=== PATIENT | male | born 1960 | race Caucasian/White ===

== ENCOUNTER 2017-02-08 19:19 | Inpatient (IN) | payer OTHER ==
--- NOTE | 2017-02-08 21:45 | Emergency Department Report ---
ED Lower Extremity HPI - General Chief Complaint: Extremity Injury, Lower Stated Complaint: RT KNEE PAIN/SWELLING Time Seen by Provider: 02/08/17 21:26 Source: patient Mode of arrival: Ambulatory Limitations: No Limitations - History of Present Illness Initial Comments: 56-year-old male past medical history none presents with complaint of right lower extremity pain and redness and swelling from the knee down to the ankle for the last 4 days. Patient states that he had a trip and fall 5 days ago small abrasion on skin subsequently developed redness which spread down his anterior right lower merrill. Patient states he has been on antibiotics for 2 days as per his PMD and has not experienced any relief of pain and redness has gotten progressively worse. Patient speaks Ukrainian is present with the rest of his family including presenting me with a bottle of Keflex. MD Complaint: knee injury Onset/Timin -: days(s) Injury: Leg: Right (erythema and cellulitis pending from right knee down to the right ankle circumferential), Knee: Right Place: home Severity: moderate Severity scale (0 -10): 6 Improves With: nothing Worsens With: weight bearing, movement Associated Symptoms: swelling, able to partially bear weight - Related Data Allergies Allergy/AdvReac Type Severity Reaction Status Date / Time No Known Allergies Allergy Verified 02/08/17 21:55 ED Review of Systems ROS: Stated complaint: RT KNEE PAIN/SWELLING Other details as noted in HPI Constitutional: denies: chills, fever Eyes: denies: eye pain, eye discharge, vision change ENT: denies: ear pain, throat pain Respiratory: denies: cough, shortness of breath, wheezing Cardiovascular: denies: chest pain, palpitations Endocrine: no symptoms reported Gastrointestinal: denies: abdominal pain, nausea, diarrhea Genitourinary: denies: urgency, dysuria Musculoskeletal: as per HPI. denies: back pain, joint swelling, arthralgia Skin: as per HPI, change in color. denies: rash, lesions Neurological: denies: headache, weakness, paresthesias Psychiatric: denies: anxiety, depression Hematological/Lymphatic: denies: easy bleeding, easy bruising ED Past Medical Hx - Past Medical History Previous Medical History?: No - Surgical History Past Surgical History?: No - Social History Smoking Status: Never Smoker Substance Use Type: None ED Physical Exam - General Limitations: No Limitations General appearance: alert, in no apparent distress - Head Head exam: Present: atraumatic, normocephalic - Eye Eye exam: Present: normal appearance, PERRL, EOMI - ENT ENT exam: Present: mucous membranes moist - Neck Neck exam: Present: normal inspection - Respiratory Respiratory exam: Present: normal lung sounds bilaterally. Absent: respiratory distress - Cardiovascular Cardiovascular Exam: Present: regular rate, normal rhythm. Absent: systolic murmur, diastolic murmur, rubs, gallop - GI/Abdominal GI/Abdominal exam: Present: soft, normal bowel sounds - Rectal Rectal exam: Present: deferred - Extremities Exam Extremities exam: Present: normal inspection - Expanded Lower Extremity Exam Right Hip exam: Present: normal inspection, full ROM Upper Leg exam: Present: normal inspection, full ROM Knee exam: Present: normal inspection, full ROM Lower Leg exam: Present: tenderness (right lower extremity appears cellulitic from right knee down to her right ankle circumferential.), erythema Ankle exam: Present: normal inspection, full ROM Foot/Toe exam: Present: normal inspection, full ROM Gait: Positive: antalgic 1 - Erythema and cellulitis circumferential right lower extremity - Back Exam Back exam: Present: normal inspection - Neurological Exam Neurological exam: Present: alert, oriented X3 - Psychiatric Psychiatric exam: Present: normal affect, normal mood - Skin Skin exam: Present: warm, dry, intact, normal color. Absent: rash ED Course Vital Signs 02/08/17 02/08/17 02/08/17 19:45 22:53 23:00 Temperature 99 F 98 F Pulse Rate 64 71 Respiratory 18 18 18 Rate Blood Pressure 154/73 Blood Pressure 137/75 [Left] O2 Sat by Pulse 100 99 98 Oximetry ED Lower Extremity MDM - Lab Data Result diagrams: 02/09/17 05:17 02/09/17 05:17 - Medical Decision Making A/P: Extensive right lower extremity cellulitis 1-3 g Unasyn 2-lab work and blood cultures sent 3-case discussed with hospitalist Dr. Johnson for admission for extensive cellulitis failing outpatient antibiotics 4-patient does not appear toxic Critical care attestation.: If time is entered above; I have spent that time in minutes in the direct care of this critically ill patient, excluding procedure time. ED Disposition Clinical Impression: Cellulitis of right leg Disposition: OP ADMITTED IP TO THIS HOSP Is pt being admited?: Yes Does the pt Need Aspirin: No Condition: Stable
--- NOTE | 2017-02-08 21:48 | XRay Report ---
FINAL REPORT EXAM: XR KNEE 3V RT HISTORY: injury with pain/swelling COMPARISON: None available. FINDINGS: Three views the right knee obtained. Mild soft tissue swelling along the infrapatellar region. Bony structures are intact. Joint spaces are preserved. No acute fracture dislocation. IMPRESSION: No acute bony abnormality. Mild soft tissue swelling.
[2017-02-08] MEDS ORDERED: NACL 0.9% 1000 ML 1,000 ML IV ONE (21:53)
[2017-02-08] MEDS ORDERED: VANCOMYCIN VIAL IV ONE (21:54)
[2017-02-08] MEDS ORDERED: VANCOMYCIN 1,750 MG in NACL 0.9% 500 ML 500 ML IV ONE (22:00)
[2017-02-08] MEDS ORDERED: VANCOMYCIN PHARMACY TO DOSE IV SCH (22:00)
[2017-02-08] MEDS ORDERED: UNASYN/NS 3 GM/100 ML 3 GM/100 ML BAG IV ONE (22:01)
[2017-02-08] MEDS ORDERED: ZOFRAN IV PRN (22:26)
[2017-02-08] MEDS ORDERED: TYLENOL PO PRN (22:26)
[2017-02-08] MEDS ORDERED: MILK OF MAGNESIA PO PRN (22:26)
[2017-02-08] MEDS ORDERED: DULCOLAX PR PRN (22:26)
[2017-02-08 22:31] LABS: Basophils % (Auto) 0.9 % (0.0-1.8); Eosinophils % (Auto) 2.1 % (0.0-4.3); Hematocrit 38.7 % (35.5-45.6); Hemoglobin 12.7 gm/dl (11.8-15.2); Mean Corpuscular HGB Conc 33 % (32-34); Mean Corpuscular Hemoglobin 28 pg (28-32); Mean Corpuscular Volume 86 fl (84-94); Platelet Count 228 K/mm3 (140-440); Red Blood Count 4.49 M/mm3 (3.65-5.03); Red Cell Distribution Width 14.1 % (13.2-15.2)
--- NOTE | 2017-02-08 22:33 | History and Physical Report ---
History of Present Illness Date of examination: 02/08/17 History of present illness: This is a 56-year-old man with no medical problems comes emergency room with complaints of right leg swelling and redness. The patient sustained a fall and bruised the right knee. He went to his primary care physician who gave him Keflex, he took this for 5 days, despite being on antibiotics he has worsening of his symptoms. Admits to fever, chills Patient denies chest pain, palpitation, shortness of breath, cough, abdominal pain, hematochezia, dysuria, frequency, focal weakness, dysarthria, polydipsia polyuria, hot or cold intolerance, easy bruisability, or rash or bleeding from mucosal membrane, rhinorrhea, epistaxis, earache, tinnitus, blurry vision, eye discharge, anxiety, depression. Other review of systems negative PAST SURGICAL HISTORY: None SOCIAL HISTORY: Social alcohol use, no tobacco or drugs FAMILY HISTORY: Hypertension Medications and Allergies Allergies Allergy/AdvReac Type Severity Reaction Status Date / Time No Known Allergies Allergy Verified 02/08/17 21:55 Active Meds: Active Medications Acetaminophen (Tylenol) 650 mg PO Q4H PRN PRN Reason: Pain MILD(1-3)/Fever >100.5/WAGONER Bisacodyl (Dulcolax) 10 mg AL QDAY PRN PRN Reason: Constipation unrelieved by MOM Enoxaparin Sodium (Lovenox) 40 mg SUB-Q QDAY LEANNA Sodium Chloride (Nacl 0.9% 1000 Ml) 1,000 mls @ 999 mls/hr IV BOLUS ONE Stop: 02/08/17 22:53 Last Admin: 02/08/17 22:10 Dose: 999 mls/hr Magnesium Hydroxide (Milk Of Magnesia) 30 ml PO Q4H PRN PRN Reason: Constipation Ondansetron HCl (Zofran) 4 mg IV Q8H PRN PRN Reason: N/V unrelieved by Reglan Oxycodone/Acetaminophen (Percocet 5/325) 1 tab PO Q4H PRN PRN Reason: Pain, Moderate (4-6) Exam - Physical Exam Narrative exam: Gen. appearance: Patient lying in bed, no apparent distress HEENT: Normocephalic, atraumatic, pupils equally round and reactive to light, extraocular movement intact, and no sclericterus,. No JVD or thyromegaly or nodule,neck supple, no carotid bruit ,mucous membranes moist, no exudate or erythema Heart: S1, S2, regular rate and rhythm Lungs: Clear to auscultation bilaterally, breathing comfortable Abdomen: Positive bowel sounds, nontender, nondistended, no organomegaly Extremity: Right leg swelling, erythematous, tender No , cyanosis, clubbing Skin: No rash, nodules, warm, dry Neuro: Oriented 3, cranial nerves II-12 intact, speech is fluent, motor and sensory intact - Constitutional Vitals: Temp Pulse Resp BP Pulse Ox 99 F 64 18 154/73 100 02/08/17 19:45 02/08/17 19:45 02/08/17 19:45 02/08/17 19:45 02/08/17 19:45 Results - Labs CBC & Chem 7: 02/09/17 05:17 02/09/17 05:17 Labs: Abnormal lab results 02/08/17 Range/Units 22:05 [place] % (Auto) 7.7 H (0.0-7.3) % Assessment and Plan Extensive right leg cellulitis Admit to medicine Start IV Vanco, DVT prophylaxis, Percocet
[2017-02-08 22:39] LABS: Anion Gap 19 mmol/L; Blood Urea Nitrogen 15 mg/dL (9-20); Calcium 9.2 mg/dL (8.4-10.2); Carbon Dioxide 27 mmol/L (22-30); Chloride 96.9 mmol/L (98-107); Glucose 109 mg/dL (75-100); Potassium 4.1 mmol/L (3.6-5.0); Sodium 139 mmol/L (137-145)
[2017-02-09] MEDS: PERCOCET 5/325 PO PRN ×3 (00:05→20:07)
[2017-02-09 05:45] LABS: Basophils % (Auto) 0.9 % (0.0-1.8); Eosinophils % (Auto) 2.4 % (0.0-4.3); Hematocrit 34.9 % (35.5-45.6); Hemoglobin 11.6 gm/dl (11.8-15.2); Mean Corpuscular HGB Conc 33 % (32-34); Mean Corpuscular Hemoglobin 28 pg (28-32); Mean Corpuscular Volume 85 fl (84-94); Platelet Count 218 K/mm3 (140-440); Red Blood Count 4.11 M/mm3 (3.65-5.03); Red Cell Distribution Width 14.2 % (13.2-15.2); White Blood Count 7.6 K/mm3 (4.5-11.0)
[2017-02-09 06:05] LABS: Anion Gap 18 mmol/L; Blood Urea Nitrogen 12 mg/dL (9-20); Calcium 8.5 mg/dL (8.4-10.2); Carbon Dioxide 25 mmol/L (22-30); Chloride 102.2 mmol/L (98-107); Glucose 102 mg/dL (75-100); Potassium 3.9 mmol/L (3.6-5.0); Sodium 141 mmol/L (137-145)
[2017-02-09] MEDS ORDERED: VANCOMYCIN/NS 1 GM/250 ML 1 GM/250 ML BAG IV SCH (08:00)
[2017-02-09] MEDS: LOVENOX SUB-Q SCH (09:05)
--- NOTE | 2017-02-09 09:17 | Progress Note ---
Assessment and Plan Assessment and plan: This is a 56-year-old man with no medical problems comes emergency room with complaints of right leg swelling and redness. The patient sustained a fall and bruised the right knee. He went to his primary care physician who gave him Keflex, he took this for 5 days, despite being on antibiotics he has worsening of his symptoms. Admits to fever, chills Patient denies chest pain, palpitation, shortness of breath, cough, abdominal pain, hematochezia, dysuria, frequency, focal weakness, dysarthria, polydipsia polyuria, hot or cold intolerance, easy bruisability, or rash or bleeding from mucosal membrane, rhinorrhea, epistaxis, earache, tinnitus, blurry vision, eye discharge, anxiety, depression. Other review of systems negative * Extensive right leg cellulitis * failed outpatient therapy * continue vancomycin- pharmacy to dose, and de-escalate in the a.m. if no evidence of MRSA. * pain control. * eval for DVT of right lower ext-negative on ultrasound * DVT/GI prophy History Interval history: Patient seen and examined this morning in no acute distress still with pain in the right lower extremity. No other adverse event reported to me Hospitalist Physical - Physical exam Narrative exam: VITAL SIGNS: Reviewed. GENERAL: The patient appeared well nourished and normally developed. Vital signs as documented. HEAD: No signs of head trauma. EYES: Pupils are equal. Extraocular motions intact. EARS: Hearing grossly intact. MOUTH: Oropharynx is normal. NECK: No adenopathy, no JVD. CHEST: Chest with clear breath sounds bilaterally. No wheezes, rales, or rhonchi. CARDIAC: Regular rate and rhythm. S1 and S2, without murmurs, gallops, or rubs. VASCULAR: Right lower extremity Edema. Peripheral pulses normal and equal in all extremities. ABDOMEN: Soft, without detectable tenderness. No sign of distention. No rebound or guarding, and no masses palpated. Bowel Sounds normal. MUSCULOSKELETAL: Good range of motion of all major joints. Extremities without clubbing, cyanosis . Right lower extremity edema. NEUROLOGIC EXAM: Alert and oriented x 3. No focal sensory or strength deficits. Speech normal. Follows commands. PSYCHIATRIC: Mood normal. SKIN: Erythema in the right lower extremity from the knee all the way to the ankle, circumferential - Constitutional Vitals: Temp Pulse Resp BP Pulse Ox 99.5 F 60 19 121/69 94 02/09/17 07:00 02/09/17 07:00 02/09/17 07:00 02/09/17 07:00 02/09/17 08:57 Results - Labs CBC & Chem 7: 02/09/17 05:17 02/09/17 05:17 Labs: Laboratory Last Values WBC 7.6 K/mm3 (4.5-11.0) 02/09/17 05:17 RBC 4.11 M/mm3 (3.65-5.03) 02/09/17 05:17 Hgb 11.6 gm/dl (11.8-15.2) L 02/09/17 05:17 Hct 34.9 % (35.5-45.6) L 02/09/17 05:17 MCV 85 fl (84-94) 02/09/17 05:17 MCH 28 pg (28-32) 02/09/17 05:17 MCHC 33 % (32-34) 02/09/17 05:17 RDW 14.2 % (13.2-15.2) 02/09/17 05:17 Plt Count 218 K/mm3 (140-440) 02/09/17 05:17 Lymph % (Auto) 27.1 % (13.4-35.0) 02/09/17 05:17 [place] % (Auto) 8.5 % (0.0-7.3) H 02/09/17 05:17 Eos % (Auto) 2.4 % (0.0-4.3) 02/09/17 05:17 Baso % (Auto) 0.9 % (0.0-1.8) 02/09/17 05:17 Lymph # 2.0 K/mm3 (1.2-5.4) 02/09/17 05:17 [place] # 0.6 K/mm3 (0.0-0.8) 02/09/17 05:17 Eos # 0.2 K/mm3 (0.0-0.4) 02/09/17 05:17 Baso # 0.1 K/mm3 (0.0-0.1) 02/09/17 05:17 Seg Neutrophils % 61.1 % (40.0-70.0) 02/09/17 05:17 Seg Neutrophils # 4.6 K/mm3 (1.8-7.7) 02/09/17 05:17 Sodium 141 mmol/L (137-145) 02/09/17 05:17 Potassium 3.9 mmol/L (3.6-5.0) 02/09/17 05:17 Chloride 102.2 mmol/L (98-107) 02/09/17 05:17 Carbon Dioxide 25 mmol/L (22-30) 02/09/17 05:17 Anion Gap 18 mmol/L 02/09/17 05:17 BUN 12 mg/dL (9-20) 02/09/17 05:17 Creatinine 0.6 mg/dL (0.8-1.5) L 02/09/17 05:17 Estimated GFR > 60 ml/min 02/09/17 05:17 BUN/Creatinine Ratio 20.00 % 02/09/17 05:17 Glucose 102 mg/dL (75-100) H 02/09/17 05:17 Lactic Acid 1.20 mmol/L (0.7-2.0) 02/08/17 22:05 Calcium 8.5 mg/dL (8.4-10.2) 02/09/17 05:17 Total Creatine Kinase 40 units/L (55-170) L 02/08/17 22:05
[2017-02-09] MEDS ORDERED: VANCOMYCIN PHARMACY TO DOSE IV SCH (10:00)
[2017-02-09] MEDS ORDERED: VANCOMYCIN/NS 1 GM/250 ML 1 GM/250 ML BAG IV ONE (13:00)
--- NOTE | 2017-02-09 13:58 | Admit Criteria Form ---
Admission Criteria Documentation: CELLULITIS Clinical Indications for Admission to Inpatient Care (Place 'X' for any and all applicable criteria): Admission is indicated for ANY ONE of the following(1)(2)(3)(4)(5): [ ]I. Limb-threatening infection [ ]II. High-risk comorbid condition as indicated by ANY ONE of the following: [ ]a) Uncontrolled diabetes (eg, HbA1c greater than 10% (0.1)) [ ]b) Cirrhosis [ ]c) Neutropenia [ ]d) Asplenia [ ]e) Immunosuppression [ ]f) Symptomatic heart failure [ ]III. Failure of outpatient therapy as indicated by ALL of the following: [ ]a) Progression or no improvement after adequate trial (minimum of 48 hours, with longer period for stable lower extremity infection) [ ]b) Adequate antibiotic regimen as indicated by use of ANY ONE of the following: [ ]i) First-generation cephalosporin (e.g., cephalexin) [ ]ii) Antistaphylococcal penicillin (e.g., dicloxacillin) [ ]iii) Penicillin-allergic patient regimen (clindamycin, extended-spectrum fluoroquinolone, or doxycycline) [ ]iv) Resistant organism (eg, methicillin-resistant Staphylococcus aureus) regimen (6) [ ]c) Outpatient intravenous therapy regimen is not appropriate due to ANY ONE of the following. (7)(8)(9)(10): [ ]i) It was tried and was not successful (eg, progression of infection). [ ]ii) It is not available or cannot be arranged in a clinically appropriate time frame (e.g., the next day). [ ]iii) Clinical presentation (eg, acuity of infection, rapidity of progression, confirmed or suspected bacteremia) is judged to require ALL of the following: [ ]1) Immediate initiation of intravenous therapy ( eg, cannot wait for next day) [ ]2) Intensity of patient monitoring and observation (eg, vital sign measurement, checks for infection progression) that cannot be provided at other than inpatient level of care [ ]IV. Mental status changes [ ]V. Bacteremia [ ]. Hemodynamic instability [ ]VII. Suspected necrotizing soft tissue infection (e.g., gas in tissue)(11)( 12) [ ]VIII. Orbital infection (13)(14) [ ]IX. Associated surgical procedure (e.g., abscess drainage, debridement) not amenable to outpatient, emergency department, or observation care [ ]X. Cutaneous gangrene [ ]XI. High fever (temperature greater than 39.5 degrees C (103.1 degrees F) (oral)) not responsive to outpatient, emergency department, or observation care therapy [ X]XIII. Inpatient admission required rather than observation care (Also use Cellulitis: Observation Care as appropriate) because of ANY ONE of the following : [ ]a) Periorbital or perineal infection that is severe or worsening [ ]b) Severe pain requiring acute inpatient management [ ]c) IV fluid to replace significant ongoing (e.g., for over 24 hours) losses (greater than 3L/m2 per day) [ ]d) Compartment syndrome monitoring (17) [ ]e) Strict or protective (eg, laminar flow) isolation [ ]f) Urgent debridement or skin grafting [ ]g) Bone or joint debridement [ ]h) Immediate inpatient surgery [ X]i) Other condition, treatment or monitoring requiring inpatient admission Extended stay beyond goal length of stay may be needed for (1)(18): [ ]a) Necrotizing soft tissue infection or fasciitis [ ]b) Gram-negative infection [ ]c) Methicillin-resistant Staphylococcal aureus (MRSA) infection [ ]d) Peripheral venous insufficiency with cellulitis [ ]e) Extensive edema [ ]f) Sepsis or continued Hemodynamic instability [ ]g) Continued high fever or mental status change [ ]h) Bacteremia [ ]i) Active serious comorbid conditions ( eg, heart failure, renal insufficiency) The original [employer] content created by [employer] has been revised. The portions of the content which have been revised are identified through the use of italic text or in bold, and [facility] has neither reviewed nor approved the modified material. All other unmodified content is copyright [facility] [employer] Please see references footnoted in the original [facility] [employer] edition 2016 Admission Criteria Met: Yes
[2017-02-10] MEDS: VANCOMYCIN 1,500 MG in NACL 0.9% 500 ML 500 ML IV SCH ×2 (00:57→13:01)
[2017-02-10 08:21] VITALS: BP 129/68
[2017-02-10] MEDS: LOVENOX SUB-Q SCH (09:37)
--- NOTE | 2017-02-10 10:13 | Discharge Summary ---
Providers - Providers Date of Admission: 02/08/17 22:26 Attending physician: JAYA SAPP MD Primary care physician: SULEMA FAITH MD Hospitalization Condition: Stable Hospital course: 56M with no significant pmh who presented with R leg swelling. He had seen his PCP about it, who had put him on oral abx, Keflex for 5 days, despite receiving abx, the leg continued to swell, was red and painful and he was having fevers and chills. Patient was admitted to the hospital for extensive right lower extremity cellulitis, he had already failed outpatient therapy. He was admitted and received IV antibiotics, he had interval improvement in his symptoms. He was sent home with 2 drug oral antibiotics, and he was advised to follow up with his PCP within 1 week to monitor recovery from the infection. Patient stated that he did not have insurance therefore he was given coupons to help with filling his prescriptions X Discharge diagnoses Extensive right leg cellulitis, did not meet sepsis criteria Disposition: DISCHARGED TO HOME OR SELFCARE Time spent for discharge: 35 minutes Core Measure Documentation - Palliative Care Palliative Care/ Comfort Measures: Not Applicable - Core Measures Any of the following diagnoses?: none Exam - Constitutional Vitals: Temp Pulse Resp BP Pulse Ox 99 F 72 18 129/68 96 02/10/17 08:00 02/10/17 08:56 02/10/17 08:00 02/10/17 08:00 02/10/17 08:56 General appearance: Present: no acute distress, well-nourished - EENT Eyes: Present: PERRL ENT: hearing intact, clear oral mucosa - Neck Neck: Present: supple, normal ROM - Respiratory Respiratory effort: normal Respiratory: bilateral: CTA - Cardiovascular Heart Sounds: Present: S1 & S2. Absent: rub, click - Extremities Extremities: pulses symmetrical, abnormal (right leg erythema, swelling and tenderness) Peripheral Pulses: within normal limits - Abdominal General gastrointestinal: Present: soft, non-tender, non-distended, normal bowel sounds Male genitourinary: Present: normal - Integumentary Integumentary: Present: clear, warm, dry - Musculoskeletal Musculoskeletal: gait normal, strength equal bilaterally - Psychiatric Psychiatric: appropriate mood/affect, intact judgment & insight - Neurologic Neurologic: CNII-XII intact, moves all extremities Plan Follow up with: PRIMARY CARE, [Primary Care Provider] - 3-5 Days Prescriptions: Amoxicillin/K Clav Tab [Augmentin 500 MG TAB] 1 each PO Q12HR #14 tablet Clindamycin [Clindamycin CAP] 300 mg PO Q8H #20 cap oxyCODONE /ACETAMINOPHEN [Percocet 5/325 mg] 1 tab PO Q4H PRN #20 tablet PRN Reason: Pain, Moderate (4-6)
[2017-02-10] MEDS: PERCOCET 5/325 PO PRN (14:45)
--- NOTE | 2017-02-12 15:06 | Vascular Lab Report ---
Right Lower Extremity Venous Duplex Study: Reason for Exam: Deep venous thrombus. Comments on the Right: All veins visualized are freely compressible without evidence of internal echogenicity. Flow is spontaneous and phasic throughout. No evidence of acute or chronic thrombus is seen in any of the vessels visualized. Comments on the Left: A limited duplex study was done of the proximal veins of the left lower extremity. All veins visualized are freely compressible without evidence of internal echogenicity. Flow is spontaneous and phasic throughout. No evidence of acute or chronic thrombus is seen in any of the vessels visualized. Impression: No evidence of acute or chronic deep venous thrombosis in the right lower extremity.
== END 2017-02-10 15:25 | disposition home or self-care (01) | DRG 603 ==
LOC: ED 19:19 → 3A 22:26
PROVIDERS: ADMIT Internal Medicine; ATTEND Internal Medicine
DX: L03.115 Cellulitis of right lower limb (principal); I10 Essential (primary) hypertension; Z72.89 Other problems related to lifestyle; Z82.49 Family history of ischemic heart disease and other diseases of the circulatory system
CPT/HCPCS: 36415; 80048; 82140; 82550; 85025; 87040; 96365; J0295; J1650; J3370; J7030; J7040

== ENCOUNTER 2017-02-14 17:41 | Inpatient (IN) | payer OTHER ==
[2017-02-14 18:20] LABS: Hematocrit 40.3 % (35.5-45.6); Hemoglobin 13.1 gm/dl (11.8-15.2); Mean Corpuscular HGB Conc 33 % (32-34); Mean Corpuscular Hemoglobin 28 pg (28-32); Mean Corpuscular Volume 86 fl (84-94); Platelet Count 435 K/mm3 (140-440); Red Blood Count 4.69 M/mm3 (3.65-5.03); White Blood Count 10.4 K/mm3 (4.5-11.0)
[2017-02-14] MEDS ORDERED: ZOFRAN IV ONE (18:25)
[2017-02-14] MEDS ORDERED: NACL 0.9% 500 ML 500 ML IV ONE (18:25)
[2017-02-14] MEDS ORDERED: MORPHINE IV ONE (18:25)
[2017-02-14 18:37] LABS: Anion Gap 19 mmol/L; BUN/Creatinine Ratio 17.14; Blood Urea Nitrogen 12 mg/dL (9-20); Calcium 9.4 mg/dL (8.4-10.2); Carbon Dioxide 26 mmol/L (22-30); Chloride 97.2 mmol/L (98-107); Glucose 107 mg/dL (75-100); Potassium 3.9 mmol/L (3.6-5.0); Sodium 138 mmol/L (137-145)
--- NOTE | 2017-02-14 18:53 | Admit Criteria Form ---
Admission Criteria Documentation: CELLULITIS Clinical Indications for Admission to Inpatient Care (Place 'X' for any and all applicable criteria): Admission is indicated for ANY ONE of the following(1)(2)(3)(4)(5): [X ]I. Limb-threatening infection [ ]II. High-risk comorbid condition as indicated by ANY ONE of the following: [ ]a) Uncontrolled diabetes (eg, HbA1c greater than 10% (0.1)) [ ]b) Cirrhosis [ ]c) Neutropenia [ ]d) Asplenia [ ]e) Immunosuppression [ ]f) Symptomatic heart failure [ ]III. Failure of outpatient therapy as indicated by ALL of the following: [ ]a) Progression or no improvement after adequate trial (minimum of 48 hours, with longer period for stable lower extremity infection) [ ]b) Adequate antibiotic regimen as indicated by use of ANY ONE of the following: [ ]i) First-generation cephalosporin (e.g., cephalexin) [ ]ii) Antistaphylococcal penicillin (e.g., dicloxacillin) [ ]iii) Penicillin-allergic patient regimen (clindamycin, extended-spectrum fluoroquinolone, or doxycycline) [ ]iv) Resistant organism (eg, methicillin-resistant Staphylococcus aureus) regimen (6) [ ]c) Outpatient intravenous therapy regimen is not appropriate due to ANY ONE of the following. (7)(8)(9)(10): [ ]i) It was tried and was not successful (eg, progression of infection). [ ]ii) It is not available or cannot be arranged in a clinically appropriate time frame (e.g., the next day). [ ]iii) Clinical presentation (eg, acuity of infection, rapidity of progression, confirmed or suspected bacteremia) is judged to require ALL of the following: [ ]1) Immediate initiation of intravenous therapy ( eg, cannot wait for next day) [ ]2) Intensity of patient monitoring and observation (eg, vital sign measurement, checks for infection progression) that cannot be provided at other than inpatient level of care [ ]IV. Mental status changes [ ]V. Bacteremia [ ]. Hemodynamic instability [ ]VII. Suspected necrotizing soft tissue infection (e.g., gas in tissue)(11)( 12) [ ]VIII. Orbital infection (13)(14) [ ]IX. Associated surgical procedure (e.g., abscess drainage, debridement) not amenable to outpatient, emergency department, or observation care [ ]X. Cutaneous gangrene [ ]XI. High fever (temperature greater than 39.5 degrees C (103.1 degrees F) (oral)) not responsive to outpatient, emergency department, or observation care therapy [ ]XIII. Inpatient admission required rather than observation care (Also use Cellulitis: Observation Care as appropriate) because of ANY ONE of the following : [ ]a) Periorbital or perineal infection that is severe or worsening [ ]b) Severe pain requiring acute inpatient management [ ]c) IV fluid to replace significant ongoing (e.g., for over 24 hours) losses (greater than 3L/m2 per day) [ ]d) Compartment syndrome monitoring (17) [ ]e) Strict or protective (eg, laminar flow) isolation [ ]f) Urgent debridement or skin grafting [ ]g) Bone or joint debridement [ ]h) Immediate inpatient surgery [ ]i) Other condition, treatment or monitoring requiring inpatient admission Extended stay beyond goal length of stay may be needed for (1)(18): [ ]a) Necrotizing soft tissue infection or fasciitis [ ]b) Gram-negative infection [ ]c) Methicillin-resistant Staphylococcal aureus (MRSA) infection [ ]d) Peripheral venous insufficiency with cellulitis [ ]e) Extensive edema [ ]f) Sepsis or continued Hemodynamic instability [ ]g) Continued high fever or mental status change [ ]h) Bacteremia [ ]i) Active serious comorbid conditions ( eg, heart failure, renal insufficiency) The original [employer] content created by [employer] has been revised. The portions of the content which have been revised are identified through the use of italic text or in bold, and [facility] has neither reviewed nor approved the modified material. All other unmodified content is copyright [facility] Please see references footnoted in the original [email or web address] edition 2016 Admission Criteria Met: Yes
[2017-02-14] MEDS ORDERED: ZOFRAN IV PRN (20:33)
[2017-02-14] MEDS ORDERED: MILK OF MAGNESIA PO PRN (20:33)
[2017-02-14] MEDS ORDERED: TYLENOL PO PRN (20:33)
[2017-02-14] MEDS ORDERED: DULCOLAX PR PRN (20:33)
[2017-02-14] MEDS ORDERED: DILAUDID IV PRN (20:34)
--- NOTE | 2017-02-14 20:39 | Event Note ---
Date: 02/14/17 See H/p in reports
[2017-02-14] MEDS ORDERED: VANCOMYCIN PHARMACY TO DOSE IV SCH (21:00)
[2017-02-14] MEDS ORDERED: VANCOMYCIN 1,750 MG in NACL 0.9% 500 ML 500 ML IV ONE (22:00)
[2017-02-14] MEDS: NACL 0.9% 1000 ML 1,000 ML IV SCH (22:59)
[2017-02-14] MEDS: ZOSYN/NS 3.375GM/50ML 3.375 GM/50 ML BAG IV SCH (23:04)
[2017-02-15] MEDS: ZOSYN/NS 3.375GM/50ML 3.375 GM/50 ML BAG IV SCH ×4 (02:26→21:26)
--- NOTE | 2017-02-15 03:05 | Emergency Department Report ---
HPI - General Chief Complaint: Wound/Laceration Time Seen by Provider: 02/14/17 18:07 - HPI HPI: The patient is a 56-year-old male who presents for pain and infection to the leg. The patient reports progressive pain to the right leg for the past 2 weeks , currently severe, 10/10 in severity, throbbing in quality, exacerbated with weightbearing ambulation, constant since onset. He also reports associated redness and swelling of the lower leg. He shares that he has been outpatient trial of treatment. He denies fever, plantar penetrating trauma to the leg, paresthesias, motor deficit. ED Past Medical Hx - Past Medical History Hx Congestive Heart Failure: No Hx Diabetes: No Hx Asthma: No Hx COPD: No Additional medical history: cellulitis right lower leg - Social History Smoking Status: Never Smoker - Medications Home Medications: Home Medications Medication Instructions Recorded Confirmed Last Taken Type Amoxicillin/K Clav Tab [Augmentin 1 each PO Q12HR #14 tablet 02/10/17 02/14/17 Unknown Rx 500 MG TAB] Clindamycin [Clindamycin CAP] 300 mg PO Q8H #20 cap 02/10/17 02/14/17 Unknown Rx oxyCODONE /ACETAMINOPHEN [Percocet 1 tab PO Q4H PRN #20 tablet 02/10/17 Unknown Rx 5/325 mg] ED Review of Systems ROS: Stated complaint: SWOLLEN RIGHT LEG/DR REFERRED Other details as noted in HPI Constitutional: denies: fever ENT: denies: throat or neck pain Respiratory: denies: cough, shortness of breath Cardiovascular: denies: chest pain Endocrine: denies unexplained weight loss or gain Gastrointestinal: denies: abdominal pain, nausea Genitourinary: denies: dysuria Musculoskeletal: Reports leg pain and swelling Skin: denies: rash Neurological: denies: headache Hematological/Lymphatic: denies: easy bleeding or easy bruising Psych: denies sadness or hopelessness Physical Exam - Physical Exam Vital Signs: Vital Signs 02/14/17 02/14/17 02/14/17 17:58 18:56 19:23 Temperature 98.8 F 99 F Pulse Rate 65 63 Respiratory 18 18 16 Rate Blood Pressure 150/80 Blood Pressure 139/69 [Right] O2 Sat by Pulse 97 97 Oximetry 02/14/17 19:26 Temperature Pulse Rate 60 Respiratory 10 L Rate Blood Pressure 144/68 Blood Pressure [Right] O2 Sat by Pulse 95 Oximetry Physical Exam: General: well-nourished, well-developed, no acute distress Head: Normocephalic, atraumatic Eyes: normal sclera ENT: Mucous membranes are pink and moist Neck: trachea midline, neck supple, No neck stiffness, no cervical adenopathy Respiratory: Breath sounds equal bilaterally, no wheezing, rales, or rhonchi Cardio: S1 and S2 present, no murmurs, rubs, gallops, capillary refill is brisk Abdomen: Normoactive bowel sounds, soft abdomen, no rigidity, no guarding or rebound tenderness Musc: 1+ pitting edema and erythema present to the distal right lower extremity , tender to palpation, leg compartments are soft and pliable, no signs of compartment syndrome at this time. Skin: No rash Neuro: no facial drooping, normal speech Psych: Normal affect ED Course Vital Signs 02/14/17 02/14/17 02/14/17 17:58 18:56 19:23 Temperature 98.8 F 99 F Pulse Rate 65 63 Respiratory 18 18 16 Rate Blood Pressure 150/80 Blood Pressure 139/69 [Right] O2 Sat by Pulse 97 97 Oximetry 02/14/17 19:26 Temperature Pulse Rate 60 Respiratory 10 L Rate Blood Pressure 144/68 Blood Pressure [Right] O2 Sat by Pulse 95 Oximetry ED Medical Decision Making - Lab Data Result diagrams: 02/14/17 18:07 02/14/17 18:07 - Medical Decision Making The patient was seen and examined by myself. The patient is placed on a panel monitor and continuous pulse ox. On initial evaluation, the patient was found to be in no distress. Evaluation orders were placed. The patient is given IV morphine for his pain and IV Zosyn for treatment of cellulitis. Lab results revealed elevated CRP of 3.9. As patient has failed outpatient trial of treatment, the patient will be admitted for continued IV antibiotic and close monitoring. Dr. Galvez of the physician on-call for the hospitalist service was contacted. He agreed to admit the patient for further treatment and close monitoring. The ED admit order was placed. The patient was admitted in guarded condition. Critical care attestation.: If time is entered above; I have spent that time in minutes in the direct care of this critically ill patient, excluding procedure time. ED Disposition Clinical Impression: Cellulitis of right leg Disposition: OP ADMITTED IP TO THIS HOSP Is pt being admited?: Yes Does the pt Need Aspirin: Yes Condition: Stable Time of Disposition: 03:01
[2017-02-15] MEDS ORDERED: BABY ASPIRIN PO ONE (03:06)
[2017-02-15 06:50] LABS: Basophils % (Auto) 0.7 % (0.0-1.8); Eosinophils % (Auto) 1.5 % (0.0-4.3); Hematocrit 34.5 % (35.5-45.6); Hemoglobin 11.4 gm/dl (11.8-15.2); Mean Corpuscular HGB Conc 33 % (32-34); Mean Corpuscular Hemoglobin 28 pg (28-32); Mean Corpuscular Volume 85 fl (84-94); Platelet Count 370 K/mm3 (140-440); Red Blood Count 4.06 M/mm3 (3.65-5.03); Red Cell Distribution Width 13.8 % (13.2-15.2); White Blood Count 7.2 K/mm3 (4.5-11.0)
[2017-02-15 07:11] LABS: Alanine Aminotransferase 19 units/L (7-56); Albumin 3.2 g/dL (3.9-5); Albumin/Globulin Ratio 0.9 %; Alkaline Phosphatase 100 units/L (35-129); Anion Gap 17 mmol/L; BUN/Creatinine Ratio 17.14; Blood Urea Nitrogen 12 mg/dL (9-20); Calcium 8.8 mg/dL (8.4-10.2); Carbon Dioxide 26 mmol/L (22-30); Chloride 101.6 mmol/L (98-107); Glucose 96 mg/dL (75-100); Potassium 3.8 mmol/L (3.6-5.0); Sodium 141 mmol/L (137-145); Total Protein 6.8 g/dL (6.3-8.2)
--- NOTE | 2017-02-15 08:37 | History and Physical Report ---
CHIEF COMPLAINT: Redness of the right leg for the past 2 weeks. HISTORY OF PRESENT ILLNESS: This is a 56-year-old male with no significant past medical history, who presents with redness of the leg from knee to ankle region. Also, a small abscess just below the knee. The patient apparently had a fall and sustained injury, which got infectious secondarily with infections spreading from the below knee to where the injury was all the way down to the right ankle. Low-grade fever present. PAST MEDICAL HISTORY: As mentioned, no significant past medical history. SOCIAL HISTORY: None. PAST SURGICAL HISTORY: None. FAMILY HISTORY: Noncontributory. REVIEW OF SYSTEMS: Significant for right lower extremity swelling and pain and redness from knee below to the ankle. Also, a small abscess at the top of the redness. Otherwise review of systems is essentially negative. PHYSICAL EXAMINATION: GENERAL: Middle-aged obese male, cooperative. VITAL SIGNS: Temperature 98.8, pulse 65, respirations 18, blood pressure 150/80. HEENT: Unremarkable. Pupils equal and reactive. NECK: Supple. No lymphadenopathy. No thyromegaly. LUNGS: Clear to auscultation and percussion. Good air entry. CARDIOVASCULAR: S1, S2 heard. No gallop, no murmur, no rub. Apical impulse in left fifth intercostal space and midclavicular line. ABDOMEN: Soft and benign. No hepatosplenomegaly. No guarding. No rigidity. EXTREMITIES: Right lower extremity is swollen from just below the knee to the ankle. Also, 3 x 3 cm abscess present just below the ankle. CENTRAL NERVOUS SYSTEM: Alert and oriented x4. SKIN: ____. LABORATORY DATA: White count is 10,400, ____ is 13.1, platelet count is 435,000. Electrolytes are normal. C-reactive protein is high at 3.90. Sodium is 139, potassium is 3.9, glucose is normal. A1c is 5.7. Glucose level is 107. ____. ASSESSMENT AND PLAN: 1. Right lower extremity cellulitis. The patient was started on IV vancomycin and IV Zosyn. Wound care consult requested. 2. Deep venous thrombosis prophylaxis, Lovenox 40 mg subcutaneous daily. JOB# [id number] VSM/NTS
[2017-02-15] MEDS: VANCOMYCIN 1,500 MG in NACL 0.9% 500 ML 500 ML IV SCH ×2 (10:34→22:31)
--- NOTE | 2017-02-15 10:49 | Progress Note ---
Assessment and Plan Assessment and plan: --Cellulitis right lower extremities Elevated the limb, IV antibiotics, vancomycin associated blood cultures, surgery evaluation noted Follow CT leg to rule out any fluid collection or abscess Lower extremity venous Doppler to rule out any DV --Obesity Counseling done patient advised diet modification and exercise as tolerated and weight reduction --History of of hypertension Monitor blood pressures, when necessary hydralazine --DVT prophylaxis with Lovenox Closely monitor the patient and adjust management as needed History Interval history: Patient seen and evaluated medical records reviewed Admitted with right lower extremity swelling and cellulitis, on IV antibiotics Surgical evaluation and recommendations noted and appreciated Patient complains of slight pain in the lower extremity Denies any fever, alert awake oriented 3 not in acute distress vital signs are stable Hospitalist Physical - Constitutional Vitals: Temp Pulse Resp BP Pulse Ox 98.7 F 51 L 19 127/75 98 02/15/17 07:00 02/15/17 07:00 02/15/17 07:00 02/15/17 07:00 02/15/17 07:00 General appearance: Present: no acute distress, well-nourished, obese - EENT Eyes: Present: PERRL, EOM intact - Neck Neck: Present: supple, normal ROM - Respiratory Respiratory effort: normal Respiratory: bilateral: diminished, negative: rales, rhonchi, wheezing - Cardiovascular Rhythm: regular Heart Sounds: Present: S1 & S2 - Extremities Extremities: no ischemia, pulses intact, abnormal (right lower extremity swelling redness and tenderness on and ondiscussion) Extremity abnormal: edema - Abdominal General gastrointestinal: soft, non-tender, non-distended, normal bowel sounds - Integumentary Integumentary: Present: clear, warm - Psychiatric Psychiatric: appropriate mood/affect, cooperative - Neurologic Neurologic: CNII-XII intact, moves all extremities Results - Labs CBC & Chem 7: 02/15/17 05:54 02/15/17 05:54 Labs: Laboratory Last Values WBC 7.2 K/mm3 (4.5-11.0) 02/15/17 05:54 RBC 4.06 M/mm3 (3.65-5.03) 02/15/17 05:54 Hgb 11.4 gm/dl (11.8-15.2) L 02/15/17 05:54 Hct 34.5 % (35.5-45.6) L 02/15/17 05:54 MCV 85 fl (84-94) 02/15/17 05:54 MCH 28 pg (28-32) 02/15/17 05:54 MCHC 33 % (32-34) 02/15/17 05:54 RDW 13.8 % (13.2-15.2) 02/15/17 05:54 Plt Count 370 K/mm3 (140-440) 02/15/17 05:54 Lymph % (Auto) 27.5 % (13.4-35.0) 02/15/17 05:54 [place] % (Auto) 6.3 % (0.0-7.3) 02/15/17 05:54 Eos % (Auto) 1.5 % (0.0-4.3) 02/15/17 05:54 Baso % (Auto) 0.7 % (0.0-1.8) 02/15/17 05:54 Lymph # 2.0 K/mm3 (1.2-5.4) 02/15/17 05:54 [place] # 0.4 K/mm3 (0.0-0.8) 02/15/17 05:54 Eos # 0.1 K/mm3 (0.0-0.4) 02/15/17 05:54 Baso # 0.0 K/mm3 (0.0-0.1) 02/15/17 05:54 Seg Neutrophils % 64.0 % (40.0-70.0) 02/15/17 05:54 Seg Neutrophils # 4.6 K/mm3 (1.8-7.7) 02/15/17 05:54 Sodium 141 mmol/L (137-145) 02/15/17 05:54 Potassium 3.8 mmol/L (3.6-5.0) 02/15/17 05:54 Chloride 101.6 mmol/L (98-107) 02/15/17 05:54 Carbon Dioxide 26 mmol/L (22-30) 02/15/17 05:54 Anion Gap 17 mmol/L 02/15/17 05:54 BUN 12 mg/dL (9-20) 02/15/17 05:54 Creatinine 0.7 mg/dL (0.8-1.5) L 02/15/17 05:54 Estimated GFR > 60 ml/min 02/15/17 05:54 BUN/Creatinine Ratio 17.14 % 02/15/17 05:54 Glucose 96 mg/dL (75-100) 02/15/17 05:54 Hemoglobin A1c 5.7 % (4-6) 02/14/17 18:07 Lactic Acid 1.00 mmol/L (0.7-2.0) 02/14/17 18:29 Calcium 8.8 mg/dL (8.4-10.2) 02/15/17 05:54 Total Bilirubin 0.50 mg/dL (0.1-1.2) 02/15/17 05:54 AST 15 units/L (5-40) 02/15/17 05:54 ALT 19 units/L (7-56) 02/15/17 05:54 Alkaline Phosphatase 100 units/L (35-129) 02/15/17 05:54 C-Reactive Protein 3.90 mg/dL (0.00-1.30) H 02/14/17 18:07 Total Protein 6.8 g/dL (6.3-8.2) 02/15/17 05:54 Albumin 3.2 g/dL (3.9-5) L 02/15/17 05:54 Albumin/Globulin Ratio 0.9 % 02/15/17 05:54
--- NOTE | 2017-02-15 12:07 | Consultation ---
History of Present Illness Consult date: 02/15/17 Reason for consult: other (cellulitis in right lower leg) Chief complaint: my leg hurts - History of present illness History of present illness: this is a 56 year old previously healthy male who fell at work around 2 weeks ago and developed increasing pain and redness in right lower extremity, no imaging available yet. No draining wound, I took band aide off and looked for it. Medications and Allergies Allergies Allergy/AdvReac Type Severity Reaction Status Date / Time No Known Allergies Allergy Verified 02/08/17 21:55 Home Medications Medication Instructions Recorded Confirmed Last Taken Type Amoxicillin/K Clav Tab [Augmentin 1 each PO Q12HR #14 tablet 02/10/17 02/14/17 Unknown Rx 500 MG TAB] Clindamycin [Clindamycin CAP] 300 mg PO Q8H #20 cap 02/10/17 02/14/17 Unknown Rx oxyCODONE /ACETAMINOPHEN [Percocet 1 tab PO Q4H PRN #20 tablet 02/10/17 Unknown Rx 5/325 mg] Active Meds: Active Medications Acetaminophen (Tylenol) 650 mg PO Q4H PRN PRN Reason: Pain MILD(1-3)/Fever >100.5/WAGONER Bisacodyl (Dulcolax) 10 mg IA QDAY PRN PRN Reason: Constipation unrelieved by MOM Hydromorphone HCl (Dilaudid) 1 mg IV Q3H PRN PRN Reason: Pain , Severe (7-10) Last Admin: 02/15/17 02:58 Dose: 1 mg Sodium Chloride (Nacl 0.9% 1000 Ml) 1,000 mls @ 75 mls/hr IV DIRECT LEANNA Stop: 02/15/17 20:30 Last Admin: 02/14/17 22:59 Dose: 75 mls/hr Vancomycin HCl 1,500 mg/ (Sodium Chloride) 530 mls @ 333.333 mls/hr IV Q12H LEANNA Last Admin: 02/15/17 10:34 Dose: 333.333 mls/hr Piperacillin Sod/Tazobactam Sod (Zosyn/Ns 3.375gm/50ml) 3.375 gm in 50 mls @ 100 mls/hr IV Q6H [facility] Last Admin: 02/15/17 10:33 Dose: 100 mls/hr Magnesium Hydroxide (Milk Of Magnesia) 30 ml PO Q4H PRN PRN Reason: Constipation Ondansetron HCl (Zofran) 4 mg IV Q8H PRN PRN Reason: N/V unrelieved by Juanis Vancomycin HCl (Vancomycin Pharmacy To Dose) 1 each IV PKCONSULT LEANNA PRN Reason: Protocol Review of Systems - Constitutional other (right lower extremity pain) Exam Vital Signs Temp Pulse Resp BP Pulse Ox 98.8 F 65 18 150/80 97 02/14/17 17:58 02/14/17 17:58 02/14/17 17:58 02/14/17 17:58 02/14/17 17:58 - General physical appearance Positive: well developed, no distress - Eyes Positive: PERRL, normal occular movement - ENT Positive: normal pinna, normal nares, normal mucosa, no hearing loss, no congestion - Neck Positive: no masses, no bruits, trachea midline, no venous distension - Respiratory Positive: normal expansion, normal respiratory effort, clear to auscultation - Cardiovascular Rhythm: regular - Extremities Extremities: abnormal (right lower extrem with swelling and tenderness, negative Homans sign) Peripheral Pulses: within normal limits - Breasts Breasts: normal, no mass, no skin changes - Abdomen Abdomen: Present: soft, bowel sounds normal. Absent: tender, distended Hernia: none - Neurologic Neurologic: alert and oriented to time, place and person, motor strength and sensation are grossly intact - Psychiatric Psychiatric: appropriate mood/affect, intact judgment & insight Results - Labs 02/15/17 05:54 02/15/17 05:54 Abnormal lab results 02/15/17 02/15/17 Range/Units 05:54 05:54 Hgb 11.4 L (11.8-15.2) gm/dl Hct 34.5 L (35.5-45.6) % Creatinine 0.7 L (0.8-1.5) mg/dL Albumin 3.2 L (3.9-5) g/dL Diabetes panel 02/15/17 Range/Units 05:54 Sodium 141 (137-145) mmol/L Potassium 3.8 (3.6-5.0) mmol/L Chloride 101.6 (98-107) mmol/L Carbon Dioxide 26 (22-30) mmol/L BUN 12 (9-20) mg/dL Creatinine 0.7 L (0.8-1.5) mg/dL Glucose 96 (75-100) mg/dL Calcium 8.8 (8.4-10.2) mg/dL AST 15 (5-40) units/L ALT 19 (7-56) units/L Alkaline Phosphatase 100 (35-129) units/L Total Protein 6.8 (6.3-8.2) g/dL Albumin 3.2 L (3.9-5) g/dL Calcium panel 02/15/17 Range/Units 05:54 Calcium 8.8 (8.4-10.2) mg/dL Albumin 3.2 L (3.9-5) g/dL Pituitary panel 02/15/17 Range/Units 05:54 Sodium 141 (137-145) mmol/L Potassium 3.8 (3.6-5.0) mmol/L Chloride 101.6 (98-107) mmol/L Carbon Dioxide 26 (22-30) mmol/L BUN 12 (9-20) mg/dL Creatinine 0.7 L (0.8-1.5) mg/dL Glucose 96 (75-100) mg/dL Calcium 8.8 (8.4-10.2) mg/dL Adrenal panel 02/15/17 Range/Units 05:54 Sodium 141 (137-145) mmol/L Potassium 3.8 (3.6-5.0) mmol/L Chloride 101.6 (98-107) mmol/L Carbon Dioxide 26 (22-30) mmol/L BUN 12 (9-20) mg/dL Creatinine 0.7 L (0.8-1.5) mg/dL Glucose 96 (75-100) mg/dL Calcium 8.8 (8.4-10.2) mg/dL Total Bilirubin 0.50 (0.1-1.2) mg/dL AST 15 (5-40) units/L ALT 19 (7-56) units/L Alkaline Phosphatase 100 (35-129) units/L Total Protein 6.8 (6.3-8.2) g/dL Albumin 3.2 L (3.9-5) g/dL Assessment and Plan Cellulitis right lower extremity, suspect crush injury? will order duplex right lower extremity, r/o DVT CT right lower leg to evaluate for trauma, I do not see evidence of compartment syndrome, no pain with flexion,dorsiflexion of foot Recc Vanc and Zosyn to start then adjust based on results.
[2017-02-15] MEDS ORDERED: NACL ONE (13:20)
--- NOTE | 2017-02-15 15:39 | Cat Scan Report ---
FINAL REPORT EXAM: CT LOWER EXTREMITY RT W CON HISTORY: trauma right lower leg TECHNIQUE: CT scan of the right tibia and fibula. Multiplanar reformations. IV contrast. PRIORS: None FINDINGS: No acute fracture or dislocation. No acute bone destruction. Pretibial fluid collection at the level of the tibial tubercle with some adjacent stranding and inflammation in the subcutaneous fat. Fluid collection measures about 3 x 1.7 cm in axial cross section, and 5.6 cm in craniocaudal dimension. Slight peripheral enhancement. There is subcutaneous edema throughout the mid and lower leg as well. Moderate medial joint space narrowing bilaterally. IMPRESSION: 1. Findings may relate to infrapatellar bursitis. Abscess or hematoma could have a similar appearance.
[2017-02-15] MEDS: NACL 0.9% 1000 ML 1,000 ML IV SCH (18:31)
[2017-02-15] MEDS ORDERED: ZOSYN/NS 3.375GM/50ML 3.375 GM/50 ML BAG IV SCH (20:00)
[2017-02-15] MEDS: LOVENOX SUB-Q SCH (21:27)
[2017-02-16] MEDS: ZOSYN/NS 3.375GM/50ML 3.375 GM/50 ML BAG IV SCH ×4 (02:58→20:58)
[2017-02-16 05:45] LABS: Eosinophils % (Auto) 1.3 % (0.0-4.3); Hematocrit 34.7 % (35.5-45.6); Hemoglobin 11.5 gm/dl (11.8-15.2); Mean Corpuscular HGB Conc 33 % (32-34); Mean Corpuscular Hemoglobin 28 pg (28-32); Mean Corpuscular Volume 85 fl (84-94); Platelet Count 372 K/mm3 (140-440); Red Cell Distribution Width 13.8 % (13.2-15.2); White Blood Count 8.4 K/mm3 (4.5-11.0)
[2017-02-16 06:02] LABS: Anion Gap 16 mmol/L; BUN/Creatinine Ratio 17.14; Blood Urea Nitrogen 12 mg/dL (9-20); Calcium 8.8 mg/dL (8.4-10.2); Carbon Dioxide 26 mmol/L (22-30); Chloride 104.9 mmol/L (98-107); Glucose 103 mg/dL (75-100); Potassium 4.1 mmol/L (3.6-5.0); Sodium 143 mmol/L (137-145)
--- NOTE | 2017-02-16 10:31 | Progress Note ---
Assessment and Plan Assessment and plan: --Cellulitis right lower extremities Swelling slightly improved Elevated the limb, IV antibiotics, vancomycin associated blood cultures, CT lower extremities reveal peripatellar bursitis Consult orthopedic inpatient versus outpatient for evaluation Lower extremity venous Doppler negative for DVT --Obesity Counseling done patient advised diet modification and exercise as tolerated and weight reduction --History of of hypertension Monitor blood pressures, when necessary hydralazine --DVT prophylaxis with Lovenox Closely monitor the patient and adjust management as needed Plan of care discussed with the patient to a bilingual family member Disposition; possibly discharge home tomorrow on oral antibiotics if patient is stable History Interval history: Patient seen and evaluated medical records reviewed No new events reported by nursing staff Lower extremity swelling slightly improved, mild pain, On IV antibiotics Alert awake oriented 3 not in acute distress ,Vital signs reviewed stable Hospitalist Physical - Constitutional Vitals: Temp Pulse Resp BP Pulse Ox 98.0 F 54 L 20 129/71 96 02/16/17 08:45 02/16/17 08:45 02/16/17 08:45 02/16/17 08:45 02/16/17 08:45 General appearance: Present: no acute distress, well-nourished, obese - EENT Eyes: Present: PERRL, EOM intact - Neck Neck: Present: supple, normal ROM - Respiratory Respiratory effort: normal Respiratory: bilateral: diminished, negative: rales, rhonchi, wheezing - Cardiovascular Rhythm: regular Heart Sounds: Present: S1 & S2 - Extremities Extremities: no ischemia, pulses intact, pulses symmetrical, abnormal (right lower extremity swelling and tenderness/cellulitis) Peripheral Pulses: within normal limits - Abdominal General gastrointestinal: soft, non-tender, non-distended, normal bowel sounds - Integumentary Integumentary: Present: clear, warm - Psychiatric Psychiatric: appropriate mood/affect, cooperative - Neurologic Neurologic: CNII-XII intact, moves all extremities Results - Labs CBC & Chem 7: 02/16/17 05:10 02/16/17 05:10 Labs: Laboratory Last Values WBC 8.4 K/mm3 (4.5-11.0) 02/16/17 05:10 RBC 4.10 M/mm3 (3.65-5.03) 02/16/17 05:10 Hgb 11.5 gm/dl (11.8-15.2) L 02/16/17 05:10 Hct 34.7 % (35.5-45.6) L 02/16/17 05:10 MCV 85 fl (84-94) 02/16/17 05:10 MCH 28 pg (28-32) 02/16/17 05:10 MCHC 33 % (32-34) 02/16/17 05:10 RDW 13.8 % (13.2-15.2) 02/16/17 05:10 Plt Count 372 K/mm3 (140-440) 02/16/17 05:10 Lymph % (Auto) 28.6 % (13.4-35.0) 02/16/17 05:10 [place] % (Auto) 5.8 % (0.0-7.3) 02/16/17 05:10 Eos % (Auto) 1.3 % (0.0-4.3) 02/16/17 05:10 Baso % (Auto) 1.0 % (0.0-1.8) 02/16/17 05:10 Lymph # 2.4 K/mm3 (1.2-5.4) 02/16/17 05:10 [place] # 0.5 K/mm3 (0.0-0.8) 02/16/17 05:10 Eos # 0.1 K/mm3 (0.0-0.4) 02/16/17 05:10 Baso # 0.1 K/mm3 (0.0-0.1) 02/16/17 05:10 Seg Neutrophils % 63.3 % (40.0-70.0) 02/16/17 05:10 Seg Neutrophils # 5.3 K/mm3 (1.8-7.7) 02/16/17 05:10 Sodium 143 mmol/L (137-145) 02/16/17 05:10 Potassium 4.1 mmol/L (3.6-5.0) 02/16/17 05:10 Chloride 104.9 mmol/L (98-107) 02/16/17 05:10 Carbon Dioxide 26 mmol/L (22-30) 02/16/17 05:10 Anion Gap 16 mmol/L 02/16/17 05:10 BUN 12 mg/dL (9-20) 02/16/17 05:10 Creatinine 0.7 mg/dL (0.8-1.5) L 02/16/17 05:10 Estimated GFR > 60 ml/min 02/16/17 05:10 BUN/Creatinine Ratio 17.14 % 02/16/17 05:10 Glucose 103 mg/dL (75-100) H 02/16/17 05:10 Hemoglobin A1c 5.7 % (4-6) 02/14/17 18:07 Lactic Acid 1.00 mmol/L (0.7-2.0) 02/14/17 18:29 Calcium 8.8 mg/dL (8.4-10.2) 02/16/17 05:10 Total Bilirubin 0.50 mg/dL (0.1-1.2) 02/15/17 05:54 AST 15 units/L (5-40) 02/15/17 05:54 ALT 19 units/L (7-56) 02/15/17 05:54 Alkaline Phosphatase 100 units/L (35-129) 02/15/17 05:54 C-Reactive Protein 3.90 mg/dL (0.00-1.30) H 02/14/17 18:07 Total Protein 6.8 g/dL (6.3-8.2) 02/15/17 05:54 Albumin 3.2 g/dL (3.9-5) L 02/15/17 05:54 Albumin/Globulin Ratio 0.9 % 02/15/17 05:54
--- NOTE | 2017-02-16 11:42 | Event Note ---
Date: 02/16/17 Right lower extremity MUCH better, duplex lower extrem negative for DVT, CT shows no fx, patient can be discharged home from Gen Surgical standpoint with follow up with Orthopaedics.
[2017-02-16] MEDS: VANCOMYCIN 1,500 MG in NACL 0.9% 500 ML 500 ML IV SCH ×2 (12:30→22:56)
[2017-02-16] MEDS: LOVENOX SUB-Q SCH (22:55)
[2017-02-17] MEDS: ZOSYN/NS 3.375GM/50ML 3.375 GM/50 ML BAG IV SCH ×3 (02:29→14:55)
--- NOTE | 2017-02-17 05:55 | Event Note ---
Date: 02/17/17 VSS low grade temp probably secondary to Zosyn, Hopefully home today with f/u outpatient with Ortho, WBC normal.
--- NOTE | 2017-02-17 10:46 | Discharge Summary ---
Providers - Providers Date of Admission: 02/14/17 18:41 Date of discharge: 02/17/17 Attending physician: GANESH CASTELAN 02/14/17 20:38 Consult to Physician [CONS] Routine Consulting Provider: SUZI KENNEDY Reason For Exam: RLE Abscess Place consult to:: DR. KENNEDY Notified:: DR. KENNEDY Phone number called:: [phone] Was contact made?: Yes If yes, spoke with:: DR. KENNEDY Time called:: 09:21 Comment:: CONSULT COMPLETED BY ART 02/16/17 11:45 Consult to Physician [CONS] Routine Consulting Provider: MONA TENORIO Reason For Exam: Rt.infrapatellar bursitis/cellulitis Place consult to:: salesperson neckties Notified:: answering service Phone number called:: Was contact made?: Yes If yes, spoke with:: freya Time called:: 13:16 Primary care physician: STONE POLISHER Hospitalization Condition: Stable Disposition: DISCHARGED TO HOME OR SELFCARE Exam - Constitutional Vitals: Temp Pulse Resp BP Pulse Ox 99.2 F 56 L 20 145/70 96 02/17/17 08:03 02/17/17 08:03 02/17/17 09:45 02/17/17 08:03 02/16/17 23:17 Plan Activity: no restrictions Diet: regular Additional Instructions: elevate the limb while resting Follow up with: SULEMA FAITH MD [Primary Care Provider] - 7 Days MONA TENORIO MD [Staff Physician] - 7 Days Prescriptions: Ciprofloxacin HCl [Ciprofloxacin TAB] 500 mg PO Q12H #20 tab Clindamycin [Clindamycin CAP] 300 mg PO Q8H #30 cap oxyCODONE /ACETAMINOPHEN [Percocet 5/325 mg] 1 tab PO Q4H PRN #20 tablet PRN Reason: Pain, Moderate (4-6)
[2017-02-17] MEDS: VANCOMYCIN 1,500 MG in NACL 0.9% 500 ML 500 ML IV SCH (11:57)
[2017-02-17 14:31] VITALS: BP 149/74
== END 2017-02-17 14:57 | disposition home or self-care (01) | DRG 603 ==
LOC: ED 17:41 → 3A 18:41
PROVIDERS: ADMIT Internal Medicine; ATTEND Internal Medicine
DX: L03.115 Cellulitis of right lower limb (principal); E66.9 Obesity, unspecified; Z68.30 Body mass index [BMI] 30.0-30.9, adult; I10 Essential (primary) hypertension; Z71.89 Other specified counseling
CPT/HCPCS: 36415; 80048; 80053; 80202; 82140; 83036; 85025; 85027; 86140; 87040; 87116; 96361; 96374; 96375; J1170; J1650; J2270; J2405; J2543; J3370; J7030; J7040; Q9967